=== PATIENT | male | born 1990 | race Caucasian/White ===

== ENCOUNTER 2020-10-02 23:40 | Emergency (ER) | payer OTHER ==
[2020-10-02 23:47] VITALS: TEMP 98.2
[2020-10-02] MEDS ORDERED: DEXAMETHASONE SOD PHOSPHATE 10 MG/ML 1 ML VIAL IV STA (23:59)
[2020-10-02] MEDS ORDERED: SODIUM CHLORIDE 0.9% 1,000 ML IV STA (23:59)
[2020-10-02] MEDS ORDERED: KETOROLAC 15 MG/ML 1 ML VIAL IVP STA (23:59)
[2020-10-02] MEDS ORDERED: ACETAMINOPHEN TAB 500 MG TAB PO STA (23:59)
--- NOTE | 2020-10-03 | ED ---
Recheck HPI - General Chief Complaint: Chest Pain Stated Complaint: COVID+ Source: patient, RN notes reviewed, old records reviewed Mode of arrival: ambulatory Limitations: no limitations - History of Present Illness MD Complaint: abnormal lab (COVID positive) -: days(s) Initial Visit For: other (none) Returns Today for: Called Because of Abnormal Lab/Test, persistent/worsening pain related to initial visit Symptoms Since Prior Visit: worsening pain, fever Context: ran out of medication Associated Symptoms: fever, chills, chest pain Treatments Prior to Arrival: other (none) - Related Data Allergies Allergy/AdvReac Type Severity Reaction Status Date / Time No Known Allergies Allergy Verified 10/02/20 23:46 Review of Systems ROS Statement: Those systems with pertinent positive or pertinent negative responses have been documented in the HPI. ROS Other: All systems not noted in ROS Statement are negative. Past Medical History Past Medical History: Hypertension History of Any Multi-Drug Resistant Organisms: None Reported Past Surgical History: No Surgical Hx Reported Past Psychological History: No Psychological Hx Reported Smoking Status: Current every day smoker Past Alcohol Use History: Rare Past Drug Use History: Marijuana General Exam Limitations: no limitations General appearance: alert, in no apparent distress Head exam: Present: atraumatic, normocephalic, normal inspection Eye exam: Present: normal appearance, PERRL, EOMI. Absent: scleral icterus, conjunctival injection, periorbital swelling ENT exam: Present: normal exam, mucous membranes moist Neck exam: Present: normal inspection. Absent: tenderness, meningismus, lymphadenopathy Respiratory exam: Present: normal lung sounds bilaterally. Absent: respiratory distress, wheezes, rales, rhonchi, stridor Cardiovascular Exam: Present: regular rate, normal rhythm, normal heart sounds. Absent: systolic murmur, diastolic murmur, rubs, gallop, clicks GI/Abdominal exam: Present: soft, normal bowel sounds. Absent: distended, tenderness, guarding, rebound, rigid Extremities exam: Present: normal inspection, full ROM, normal capillary refill. Absent: tenderness, pedal edema, joint swelling, calf tenderness Back exam: Present: normal inspection Neurological exam: Present: alert, oriented X3, CN II-XII intact Psychiatric exam: Present: normal affect, normal mood Skin exam: Present: warm, dry, intact, normal color. Absent: rash Course Vital Signs 10/02/20 10/03/2010/03/21 23:42 00:25 01:44 Temperature 98.2 F 98.2 F Pulse Rate 90 75 Pulse Rate [ 88 [employer] ] Respiratory 18 22 20 Rate Blood Pressure 162/91 136/93 O2 Sat by Pulse 97 97 Oximetry 10/03/20 10/03/20 02:00 03:10 Temperature 98.2 F Pulse Rate 76 70 Pulse Rate [ [employer] ] Respiratory 18 20 Rate Blood Pressure 124/76 129/78 O2 Sat by Pulse 97 99 Oximetry - Reevaluation(s) Reevaluation #1: Medical record is reviewed Patient symptoms are significantly improved here in the emergency department Patient family informed of results, questions answered Medical Decision Making - Lab Data Result diagrams: 10/03/20 00:05 10/03/20 00:05 Lab Results 10/03/20 10/03/20 10/03/20 Range/Units 00:05 00:05 00:05 WBC 5.7 (3.8-10.6) k/uL RBC 5.67 (4.30-5.90) m/uL Hgb 16.4 (13.0-17.5) gm/dL Hct 48.0 (39.0-53.0) % MCV 84.5 (80.0-100.0) fL MCH 28.8 (25.0-35.0) pg MCHC 34.1 (31.0-37.0) g/dL RDW 13.2 (11.5-15.5) % Plt Count 147 L (150-450) k/uL MPV 10.3 Neutrophils % 53 % Lymphocytes % 34 % Monocytes % 10 % Eosinophils % 1 % Basophils % 1 % Neutrophils # 3.0 (1.3-7.7) k/uL Lymphocytes # 1.9 (1.0-4.8) k/uL Monocytes # 0.5 (0-1.0) k/uL Eosinophils # 0.0 (0-0.7) k/uL Basophils # 0.0 (0-0.2) k/uL Sodium 137 (137-145) mmol/L Potassium 3.8 (3.5-5.1) mmol/L Chloride 103 (98-107) mmol/L Carbon Dioxide 26 (22-30) mmol/L Anion Gap 8 mmol/L BUN 10 (9-20) mg/dL Creatinine 0.75 (0.66-1.25) mg/dL Est GFR (CKD-EPI)AfAm >90 (>60 ml/min/1.73 sqM) Est GFR (CKD-EPI)NonAf >90 (>60 ml/min/1.73 sqM) Glucose 110 H (74-99) mg/dL Plasma Lactic Acid Cristi 1.0 (0.7-2.0) mmol/L Calcium 9.3 (8.4-10.2) mg/dL Magnesium 2.1 (1.6-2.3) mg/dL Total Bilirubin 0.8 (0.2-1.3) mg/dL AST 35 (17-59) U/L ALT 34 (4-49) U/L Alkaline Phosphatase 63 (38-126) U/L Lactate Dehydrogenase 496 (313-618) U/L C-Reactive Protein 0.5 (<1.0) mg/dL Total Protein 8.0 (6.3-8.2) g/dL Albumin 4.9 (3.5-5.0) g/dL - EKG Data -: EKG Interpreted by Me (EKG is sinus rhythm 78 SC 136 QRS 104 QTC 446) Disposition Clinical Impression: Coronavirus infection Disposition: HOME SELF-CARE Condition: Good Instructions (If sedation given, give patient instructions): Coronavirus Disease 2019 (COVID-19) Is patient prescribed a controlled substance at d/c from ED?: No Referrals: Joe Santana MD [Primary Care Provider] - 1-2 days
[2020-10-03 00:14] LABS: Basophils % (A) 1 %; Eosinophils % (A) 1 %; HGB 16.4 gm/dL (13.0-17.5); Lymphocytes # (A) 1.9 k/uL (1.0-4.8); Lymphocytes % (A) 34 %; MCH 28.8 pg (25.0-35.0); MCHC 34.1 g/dL (31.0-37.0); MCV 84.5 fL (80.0-100.0); Mean Platelet Volume 10.3; Monocytes # (A) 0.5 k/uL (0-1.0); Monocytes % (A) 10 %; Neutrophils % (A) 53 %; Platelet Count 147 k/uL (150-450); RBC 5.67 m/uL (4.30-5.90); RDW 13.2 % (11.5-15.5); WBC 5.7 k/uL (3.8-10.6)
[2020-10-03 00:39] LABS: ALT 34 U/L (4-49); AST 35 U/L (17-59); African American GFR (CKD) >90 (>60 ml/min/1.73 sqM); Albumin 4.9 g/dL (3.5-5.0); Alkaline Phosphatase 63 U/L (38-126); Anion Gap 8 mmol/L; Blood Urea Nitrogen 10 mg/dL (9-20); C Reactive Protein 0.5 mg/dL (<1.0); Calcium 9.3 mg/dL (8.4-10.2); Carbon Dioxide 26 mmol/L (22-30); Chloride 103 mmol/L (98-107); Glucose 110 mg/dL (74-99); LDH 496 U/L (313-618); Magnesium 2.1 mg/dL (1.6-2.3); Non-African American GFR(CKD) >90 (>60 ml/min/1.73 sqM); Potassium 3.8 mmol/L (3.5-5.1); Sodium 137 mmol/L (137-145); Total Bilirubin 0.8 mg/dL (0.2-1.3)
--- NOTE | 2020-10-03 00:44 | XR ---
EXAM: XR Chest, 1 View CLINICAL HISTORY: ITS.REASON XR Reason: Suspected COVID-19 pneumonia TECHNIQUE: Frontal view of the chest. COMPARISON: No relevant prior studies available. FINDINGS: Lungs: Peripheral infiltrates in the right lower lung. Left lung appears clear. Pleural space: Unremarkable. No pleural effusion or pneumothorax. Heart: Unremarkable. No cardiomegaly or pulmonary vascular congestion. Mediastinum: Unremarkable. Bones/joints: No acute fracture. No dislocation. IMPRESSION: Peripheral infiltrates in the right lower lung, concerning for pneumonia, possibly viral pneumonia.
[2020-10-03] MEDS ORDERED: BAMLANIVIMAB (EUA) 700 MG, ETESEVIMAB (EUA) 1,400 MG in SODIUM CHLORIDE 0.9% 50 ML IVPB ONE (01:30)
[2020-10-03] MEDS ORDERED: SODIUM CHLORIDE 0.9% 50 ML IVPB ONE (01:30)
[2020-10-03 03:10] VITALS: BP 129/78; PULSE 70; RESP 20
== END 2020-10-03 03:10 | disposition home or self-care (01) ==
LOC: EC 23:40
DX: U07.1 COVID-19 (principal); I10 Essential (primary) hypertension; F17.200 Nicotine dependence, unspecified, uncomplicated; F12.90 Cannabis use, unspecified, uncomplicated
CPT/HCPCS: 36415; 93005; 80053; 83605; 83615; 83735; 85025; 86140; 71045; 99284; 96374; 96375; 96361; J1100; J1885; Q0245

== ENCOUNTER 2022-11-03 10:29 | Observation (INO) | payer OTHER ==
[2022-11-03] MEDS ORDERED: DILTIAZEM DRIP BOLUS FROM BAG 1 MG SOLN IV ONE (10:59)
--- NOTE | 2022-11-03 10:59 | ED ---
Arrhythmia/Palpitations HPI - General Chief Complaint: Arrhythmia/Palpitations Stated Complaint: heart fluttering Time Seen by Provider: 11/03/22 10:43 Source: patient Mode of arrival: ambulatory Limitations: no limitations - History of Present Illness Initial Comments: 32-year-old male who presents to the emergency room reporting palpitations. States that they started this morning. He feels like his heart is variable between feeling really slowed and fast. Admits that this did happen to him once before however is unsure of his diagnosis. He takes Toprol but did not take it this morning. Denies any additional missed doses. He is not on a blood thinner. He denies chest pain. Recently started an injection once weekly for his diabetes. He denies recent illnesses. No lower extremity swelling. No other alleviating, precipitating or modifying factors - Related Data Home Medications Medication Instructions Recorded Confirmed Cyclobenzaprine [Flexeril] 10 mg PO BID 11/03/22 11/03/22 Ergocalciferol [Vitamin D2 (1250 1,250 mcg PO Q28D 11/03/22 11/03/22 Mcg = 81771 Iu)] HYDROcodone/APAP 5-325MG [[place] 1 tab PO BID PRN 11/03/22 11/03/22 5-325] Ibuprofen [Motrin] 800 mg PO BID PRN 11/03/22 11/03/22 Metoprolol Succinate [Toprol XL] 50 mg PO DAILY@1200 11/03/22 11/03/22 Semaglutide [Wegovy] 0.25 mg SQ TH 11/03/22 11/03/22 Allergies Allergy/AdvReac Type Severity Reaction Status Date / Time No Known Allergies Allergy Verified 11/03/22 13:02 Review of Systems ROS Statement: Those systems with pertinent positive or pertinent negative responses have been documented in the HPI. ROS Other: All systems not noted in ROS Statement are negative. Past Medical History Past Medical History: Hypertension History of Any Multi-Drug Resistant Organisms: None Reported Past Surgical History: No Surgical Hx Reported Past Psychological History: No Psychological Hx Reported Smoking Status: Current every day smoker Past Alcohol Use History: Rare Past Drug Use History: Marijuana General Exam Limitations: no limitations Course Vital Signs 11/03/22 11/03/22 11/03/22 10:37 10:43 11:01 Temperature 97.4 F L Pulse Rate 84 142 H Pulse Rate [ 155 H Relief Charge Nurse ] Respiratory 18 12 Rate Blood Pressure 135/96 123/91 O2 Sat by Pulse 98 98 Oximetry 11/03/22 11/03/22 11/03/22 11:10 11:20 11:30 Temperature Pulse Rate 104 H 104 H 93 Pulse Rate [ Relief Charge Nurse ] Respiratory 9 L 8 L 12 Rate Blood Pressure O2 Sat by Pulse 97 97 98 Oximetry 11/03/22 11/03/22 11/03/22 12:00 12:30 13:00 Temperature Pulse Rate 92 90 86 Pulse Rate [ Relief Charge Nurse ] Respiratory 16 16 17 Rate Blood Pressure 143/78 135/82 123/70 O2 Sat by Pulse 96 97 96 Oximetry 11/03/22 11/03/22 14:00 15:00 Temperature Pulse Rate 90 87 Pulse Rate [ Relief Charge Nurse ] Respiratory 17 18 Rate Blood Pressure 121/91 133/77 O2 Sat by Pulse 96 96 Oximetry EKG Findings - EKG Comments: EKG Findings:: EKG is interpreted by myself and completed at 1047 which demonstrates A. fib with a rate of 150. QRS 102. QTC of 373. No acute ST segment elevations or depressions. Repeat EKG is performed at 1246 and is interpreted by myself which demonstrates sinus rhythm with a rate of 84. AL interval 149. QRS 97. QTC 399. No acute ST segment elevations or depressions Medical Decision Making - Medical Decision Making Was pt. sent in by a medical professional or institution (Dr. PA, BARIATRIC NURSE, urgent care, hospital, or halfway...) When possible be specific @ -[No] Did you speak to anyone other than the patient for history (EMS, parent, family, police, friend...)? What history was obtained from this source @ -[No] Did you review nursing and triage notes (agree or disagree)? Why? @ -[I reviewed and agree with nursing and triage notes] Were old charts reviewed (outside hosp., previous admission, EMS record, old EKG, old radiological studies, urgent care reports/EKG's, halfway records)? Report findings @ -[No old charts were reviewed] Differential Diagnosis (chest pain, altered mental status, abdominal pain women, abdominal pain men, vaginal bleeding, weakness, fever, dyspnea, syncope, headache, dizziness, GI bleed, back pain, seizure, CVA, palpatations, mental health, musculoskeletal)? @ -[not applicable] EKG interpreted by me (3pts min.). @ -[As above] X-rays interpreted by me (1pt min.). @ -[None done] CT interpreted by me (1pt min.). @ -[None done] U/S interpreted by me (1pt. min.). @ -[None done] What testing was considered but not performed or refused? (CT, X-rays, U/S, labs)? Why? @ -[None] What meds were considered but not given or refused? Why? @ -[None] Did you discuss the management of the patient with other professionals (professionals i.e. Dr., PA, BARIATRIC NURSE, lab, RT, psych nurse, psychosocial rehabilitation counselor, research engineer marine equipment, teacher, duty officer, immigration case worker)? Give summary @ -[No] Was smoking cessation discussed for >3mins.? @ -[No] Was critical care preformed (if so, how long)? @ -[No] Were there social determinants of health that impacted care today? How? (Homelessness, low income, unemployed, alcoholism, drug addiction, transportation, low edu. Level, literacy, decrease access to med. care, longterm, rehab)? @ -[No] Was there de-escalation of care discussed even if they declined (Discuss DNR or withdrawal of care, Hospice)? DNR status @ -[No] What co-morbidities impacted this encounter? (DM, HTN, Smoking, COPD, CAD, Cancer, CVA, ARF, Chemo, Hep., AIDS, mental health diagnosis, sleep apnea, morbid obesity)? @ -[None] Was patient admitted / discharged? Hospital course, mention meds given and route, prescriptions, significant lab abnormalities, going to OR and other pertinent info. @ -Upon arrival patient is placed into room 4. He is found to be in A. fib with RVR. IV is established and laboratory studies are conducted. Chest x-rays performed. Patient was started on a Cardizem drip as well as a heparin drip. Patient does convert to normal sinus rhythm. Did discuss this with the patient the need for admission. Spoke with Dr. Santana who agreed to admit the patient with cardiology consult Undiagnosed new problem with uncertain prognosis? @ -[No] Drug Therapy requiring intensive monitoring for toxicity (Heparin, Nitro, Insulin, Cardizem)? @ -[No] Were any procedures done? @ -[No] Diagnosis/symptom? @ -[default] Acute, or Chronic, or Acute on Chronic? @ -[default] Uncomplicated (without systemic symptoms) or Complicated (systemic symptoms)? @ -[default] Side effects of treatment? @ -[No] Exacerbation, Progression, or Severe Exacerbation? @ -[No] Poses a threat to life or bodily function? How? (Chest pain, [place], [place], pneumonia, PE, COPD, DKA, ARF, appy, cholecystitis, CVA, Diverticulitis, Homicidal, Suicidal, threat to staff... and all critical care pts) @ -[No] - Lab Data Result diagrams: 11/03/22 11:00 11/03/22 11:00 Lab Results 11/03/22 11/03/22 11/03/22 Range/Units 11:00 11:00 11:00 WBC 9.7 (3.8-10.6) k/uL RBC 5.65 (4.30-5.90) m/uL Hgb 16.4 (13.0-17.5) gm/dL Hct 47.7 (39.0-53.0) % MCV 84.5 (80.0-100.0) fL MCH 29.1 (25.0-35.0) pg MCHC 34.4 (31.0-37.0) g/dL RDW 13.3 (11.5-15.5) % Plt Count 191 (150-450) k/uL MPV 10.0 Neutrophils % 65 % Lymphocytes % 22 % Monocytes % 9 % Eosinophils % 2 % Basophils % 1 % Neutrophils # 6.3 (1.3-7.7) k/uL Lymphocytes # 2.1 (1.0-4.8) k/uL Monocytes # 0.9 (0-1.0) k/uL Eosinophils # 0.2 (0-0.7) k/uL Basophils # 0.1 (0-0.2) k/uL PT 10.2 (9.0-12.0) sec INR 1.0 (<1.2) APTT 25.6 (22.0-30.0) sec Sodium 139 (137-145) mmol/L Potassium 3.7 (3.5-5.1) mmol/L Chloride 104 (98-107) mmol/L Carbon Dioxide 24 (22-30) mmol/L Anion Gap 11 mmol/L BUN 15 (9-20) mg/dL Creatinine 0.87 (0.66-1.25) mg/dL Est GFR (CKD-EPI)AfAm >90 (>60 ml/min/1.73 sqM) Est GFR (CKD-EPI)NonAf >90 (>60 ml/min/1.73 sqM) Glucose 148 H (74-99) mg/dL Calcium 9.0 (8.4-10.2) mg/dL Magnesium 2.1 (1.6-2.3) mg/dL Total Bilirubin 0.5 (0.2-1.3) mg/dL AST 39 (17-59) U/L ALT 51 H (4-49) U/L Alkaline Phosphatase 65 (38-126) U/L Troponin I (0.000-0.034) ng/mL Total Protein 7.5 (6.3-8.2) g/dL Albumin 4.6 (3.5-5.0) g/dL TSH 2.220 (0.465-4.680) mIU/L 11/03/22 Range/Units 11:00 WBC (3.8-10.6) k/uL RBC (4.30-5.90) m/uL Hgb (13.0-17.5) gm/dL Hct (39.0-53.0) % MCV (80.0-100.0) fL MCH (25.0-35.0) pg MCHC (31.0-37.0) g/dL RDW (11.5-15.5) % Plt Count (150-450) k/uL MPV Neutrophils % % Lymphocytes % % Monocytes % % Eosinophils % % Basophils % % Neutrophils # (1.3-7.7) k/uL Lymphocytes # (1.0-4.8) k/uL Monocytes # (0-1.0) k/uL Eosinophils # (0-0.7) k/uL Basophils # (0-0.2) k/uL PT (9.0-12.0) sec INR (<1.2) APTT (22.0-30.0) sec Sodium (137-145) mmol/L Potassium (3.5-5.1) mmol/L Chloride (98-107) mmol/L Carbon Dioxide (22-30) mmol/L Anion Gap mmol/L BUN (9-20) mg/dL Creatinine (0.66-1.25) mg/dL Est GFR (CKD-EPI)AfAm (>60 ml/min/1.73 sqM) Est GFR (CKD-EPI)NonAf (>60 ml/min/1.73 sqM) Glucose (74-99) mg/dL Calcium (8.4-10.2) mg/dL Magnesium (1.6-2.3) mg/dL Total Bilirubin (0.2-1.3) mg/dL AST (17-59) U/L ALT (4-49) U/L Alkaline Phosphatase (38-126) U/L Troponin I <0.012 (0.000-0.034) ng/mL Total Protein (6.3-8.2) g/dL Albumin (3.5-5.0) g/dL TSH (0.465-4.680) mIU/L Disposition Clinical Impression: Atrial fibrillation with RVR, Palpitations Disposition: [facility]MITT[facility] Condition: Stable Is patient prescribed a controlled substance at d/c from ED?: No Time of Disposition: 13:39 Decision to Admit Reason: Admit from EC Decision Date: 11/03/22 Decision Time: 13:39
[2022-11-03] MEDS: DILTIAZEM 125 MG in SODIUM CHLORIDE 0.9% 100 ML IV SCH (11:13)
[2022-11-03 11:25] LABS: Basophils # (A) 0.1 k/uL (0-0.2); Basophils % (A) 1 %; Eosinophils # (A) 0.2 k/uL (0-0.7); Eosinophils % (A) 2 %; HCT 47.7 % (39.0-53.0); HGB 16.4 gm/dL (13.0-17.5); Lymphocytes # (A) 2.1 k/uL (1.0-4.8); Lymphocytes % (A) 22 %; MCH 29.1 pg (25.0-35.0); MCHC 34.4 g/dL (31.0-37.0); MCV 84.5 fL (80.0-100.0); Monocytes # (A) 0.9 k/uL (0-1.0); Monocytes % (A) 9 %; Neutrophils # (A) 6.3 k/uL (1.3-7.7); Neutrophils % (A) 65 %; Platelet Count 191 k/uL (150-450); RBC 5.65 m/uL (4.30-5.90); RDW 13.3 % (11.5-15.5); WBC 9.7 k/uL (3.8-10.6)
[2022-11-03 11:35] LABS: ALT 51 U/L (4-49); AST 39 U/L (17-59); African American GFR (CKD) >90 (>60 ml/min/1.73 sqM); Albumin 4.6 g/dL (3.5-5.0); Alkaline Phosphatase 65 U/L (38-126); Anion Gap 11 mmol/L; Blood Urea Nitrogen 15 mg/dL (9-20); Carbon Dioxide 24 mmol/L (22-30); Chloride 104 mmol/L (98-107); Glucose 148 mg/dL (74-99); Magnesium 2.1 mg/dL (1.6-2.3); Non-African American GFR(CKD) >90 (>60 ml/min/1.73 sqM); Potassium 3.7 mmol/L (3.5-5.1); Sodium 139 mmol/L (137-145); Total Bilirubin 0.5 mg/dL (0.2-1.3); Total Protein 7.5 g/dL (6.3-8.2)
--- NOTE | 2022-11-03 11:36 | XR ---
EXAMINATION TYPE: XR chest 2V DATE OF EXAM: 11/03/2022 COMPARISON: 10/03/2020 HISTORY: Chest pain TECHNIQUE: Frontal and lateral views of the chest are obtained. FINDINGS: There is no focal air space opacity. No evidence for pneumothorax. No pleural effusion. The cardiac silhouette size is within normal limits. The osseous structures are grossly intact. IMPRESSION: 1. No acute cardiopulmonary process.
[2022-11-03 11:45] LABS: Partial Thromboplastin Time 25.6 sec (22.0-30.0); Prothrombin Time 10.2 sec (9.0-12.0)
[2022-11-03] MEDS ORDERED: NALOXONE 0.4 MG/ML 1 ML VIAL IV PRN (13:39)
[2022-11-03] MEDS ORDERED: HEPARIN SODIUM 1,000 UN/ML (10ML VL) IV PRN (13:40)
[2022-11-03] MEDS ORDERED: HEPARIN SODIUM 1,000 UN/ML (10ML VL) IV ONE (13:40)
[2022-11-03] MEDS: HEPARIN SOD,PORK IN 0.45% NACL 25,000 UNIT in 0.45% NACL 1 250ML.BAG IV SCH (15:08)
[2022-11-03] MEDS ORDERED: IBUPROFEN 800 MG TAB PO PRN (18:05)
[2022-11-03] MEDS ORDERED: HYDROcodone/APAP 5-325MG 1 EACH TAB PO PRN (18:05)
[2022-11-03 20:38] LABS: Partial Thromboplastin Time 29.5 sec (22.0-30.0)
[2022-11-03] MEDS: CYCLOBENZAPRINE 10 MG TAB PO SCH (21:07)
[2022-11-04] MEDS: CYCLOBENZAPRINE 10 MG TAB PO SCH (08:10)
--- NOTE | 2022-11-04 09:41 | HP ---
HISTORY AND PHYSICAL CHIEF COMPLAINT: Palpitations. HISTORY OF PRESENT ILLNESS: This is a 32-year-old white male woke up and noticed that his heart was racing. He felt a little bit short of breath. He presented to the emergency room where he was in atrial fibrillation. He was converted in the ER. He denied any chest pain, fever, chills, nausea, vomiting, abdominal pain, etc. PAST MEDICAL HISTORY: Unremarkable. FAMILY HISTORY: Unremarkable. PERSONAL AND SOCIAL HISTORY: Unremarkable, otherwise. He has had arrhythmia in the past and that is why he is on metoprolol. He is also on Motrin, Wegovy, and Flexeril. He is overweight. He is not allergic to any medication. PHYSICAL EXAMINATION: VITAL SIGNS: Blood pressure 135/96 with a pulse of 155 and irregularly irregular. Respirations were 28 and he was afebrile. GENERAL: Appeared to be overweight, in no acute distress. SKIN: Color is normal. Skin is warm, dry. LYMPH NODES: Not enlarged. HEAD, EARS, EYES, NOSE, MOUTH AND THROAT: Normal. NECK: Neck veins are not distended. Thyroid not enlarged. Chest: Clear. CARDIAC: Normal except for the rapid heart rate. There are no murmurs or extra sounds. ABDOMEN: Protuberant, soft, nontender. EXTREMITIES: Normal. NEUROLOGICAL: Intact. IMPRESSION: 1. Atrial fibrillation with rapid ventricular response. 2. Obesity. 3. History of previous supraventricular tachycardia. PLAN: 1. Bed rest. 2. IV fluids. 3. Cardiology consult. 4. Echocardiogram. 5. ?anticoagulation. MMODL / IJN: [id number] /
[2022-11-04 10:35] LABS: Basophils # (A) 0.1 k/uL (0-0.2); Basophils % (A) 1 %; Eosinophils # (A) 0.1 k/uL (0-0.7); Eosinophils % (A) 2 %; HCT 45.6 % (39.0-53.0); HGB 15.2 gm/dL (13.0-17.5); Lymphocytes # (A) 1.9 k/uL (1.0-4.8); Lymphocytes % (A) 27 %; MCH 29.2 pg (25.0-35.0); MCHC 33.4 g/dL (31.0-37.0); MCV 87.5 fL (80.0-100.0); Mean Platelet Volume 9.7; Monocytes # (A) 0.6 k/uL (0-1.0); Monocytes % (A) 9 %; Neutrophils # (A) 4.2 k/uL (1.3-7.7); Neutrophils % (A) 60 %; Platelet Count 178 k/uL (150-450); RBC 5.21 m/uL (4.30-5.90); RDW 12.9 % (11.5-15.5)
[2022-11-04 10:45] LABS: Partial Thromboplastin Time 28.4 sec (22.0-30.0); Prothrombin Time 10.8 sec (9.0-12.0)
[2022-11-04 10:46] LABS: African American GFR (CKD) >90 (>60 ml/min/1.73 sqM); Anion Gap 9 mmol/L; Blood Urea Nitrogen 12 mg/dL (9-20); Calcium 8.8 mg/dL (8.4-10.2); Carbon Dioxide 27 mmol/L (22-30); Chloride 103 mmol/L (98-107); Glucose 107 mg/dL (74-99); Non-African American GFR(CKD) >90 (>60 ml/min/1.73 sqM); Potassium 4.1 mmol/L (3.5-5.1); Sodium 139 mmol/L (137-145)
[2022-11-04] MEDS ORDERED: METOPROLOL SUCCINATE (ER) 50 MG TAB.ER.24H PO SCH (12:00)
--- NOTE | 2022-11-04 12:11 | P.CRDCN ---
History of Present Illness Consult date: 11/04/22 Consult reason: atrial fibrillation (w rvr) History of present illness: History of present illness: This is a 32-year-old male with past medical history of hypertension and paroxysmal atrial fibrillation. Patient was seen in the office by Dr. VC Sorenson 09/2014. According to her chads 2 recommendations were for anticoagulant but patient remained in a sinus rhythm and so he was left off anticoagulation. He states he woke up yesterday feeling funny in his chest with his heart beating fast and then slow and then a soft fluttering feeling in his back. He denies having any lightheadedness, dizziness or syncopal episodes. He denies any hist ory of diabetes or hyperlipidemia. Patient was started on Cardizem drip and his converted to sinus rhythm. Patient is also on heparin drip. EKG atrial fibrillation with ventricular rate of 150 Chest x-ray: No acute cardiopulmonary process CBC unremarkable. INR 1. D-dimer 0.28. Electrolytes and renal function normal. Troponin negative 1. TSH 2.22. Home cardiac medications: Toprol-XL 50 mg daily at noon Stress echocardiogram performed in the office in 2013 revealed no stress-induced ischemia, normal left ventricle systolic function. Review Of Systems: At the time of my evaluation: Constitutional: No fever, no chills. No weakness, fatigue or lethargy. EENT: No headache. No dizziness. Lungs: No shortness of breath, cough, no sputum production. No wheezing. Cardiovascular: No chest pain, no lower extremity edema. No palpitations. No paroxysmal nocturnal dyspnea. No orthopnea. No lightheadedness or dizziness. No syncopal episodes. Abdominal: No abdominal pain. No nausea, vomiting. No diarrhea. No constipation. No bloody or tarry stools. Genitourinary: No dysuria.. No urinary retention. Musculoskeletal: No myalgias. No muscle weakness, no frequent falls. No back pain. No neck pain. Integumentary: No wounds. No rash. No unusual bruising. Neurologic: No aphasia. No facial droop. No change in mentation. No head injury. No headache. Physical examination: Gen: This is a morbidly obese 32-year-old male. He is resting but appears to be comfortable and in no acute distress. VS: reviewed HEENT: Head is atraumatic, normocephalic. Pupils equal, round. Sclerae is anicteric. NECK: Supple. No JVD. . LUNGS: Clear to auscultation. No wheezes or rhonchi. No intercostal retractions. HEART: Regular rate and rhythm. No murmur. ABDOMEN: Soft No tenderness. EXTREMITIES: No pedal edema. No calf tenderness. NEUROLOGICAL: Patient is awake, alert and oriented x3. Assessment: Paroxysmal atrial fibrillation presented with RVR, converted to sinus rhythm Hypertension Plan: Discontinue heparin drip Start patient back on home Toprol-XL CHADS-VASC score 1 - no anticoagulant 2-D echocardiogram and Doppler study has been obtained, will review results Further recommendations to follow based upon clinical course Thank you kindly for this consultation. Nurse practitioner note has been reviewed, I agree with documented findings and plan of care. Patient was seen and examined. Past Medical History Past Medical History: Hypertension History of Any Multi-Drug Resistant Organisms: None Reported Past Surgical History: No Surgical Hx Reported Past Anesthesia/Blood Transfusion Reactions: No Reported Reaction Past Psychological History: No Psychological Hx Reported Smoking Status: Current every day smoker Past Alcohol Use History: Rare Past Drug Use History: Marijuana Medications and Allergies Home Medications Medication Instructions Recorded Confirmed Type Cyclobenzaprine [Flexeril] 10 mg PO BID 11/03/22 11/03/22 History Ergocalciferol [Vitamin D2 (1250 1,250 mcg PO Q28D 11/03/22 11/03/22 History Mcg = 78284 Iu)] HYDROcodone/APAP 5-325MG [[place] 1 tab PO BID PRN 11/03/22 11/03/22 History 5-325] Ibuprofen [Motrin] 800 mg PO BID PRN 11/03/22 11/03/22 History Metoprolol Succinate [Toprol XL] 50 mg PO DAILY@1200 11/03/22 11/03/22 History Semaglutide [Wegovy] 0.25 mg SQ TH 11/03/22 11/03/22 History Allergies Allergy/AdvReac Type Severity Reaction Status Date / Time No Known Allergies Allergy Verified 11/03/22 13:02 Physical Exam Vitals: Vital Signs Temp Pulse Pulse Resp BP BP Pulse Ox 11/04/22 04:00 97.8 F 89 16 129/63 95 11/04/22 01:14 16 11/04/22 00:00 98.0 F 82 16 142/69 96 11/03/22 20:00 97.9 F 84 16 152/76 94 L 11/03/22 19:57 84 16 141/88 97 11/03/22 17:00 87 12 138/76 98 11/03/22 16:12 97 16 138/76 97 11/03/22 16:00 149/88 11/03/22 15:00 87 18 133/77 96 11/03/22 14:00 90 17 121/91 96 11/03/22 13:00 86 17 123/70 96 11/03/22 12:30 90 16 135/82 97 11/03/22 12:00 92 16 143/78 96 11/03/22 11:30 93 12 98 11/03/22 11:20 104 H 8 L 97 11/03/22 11:10 104 H 9 L 97 11/03/22 11:01 142 H 12 123/91 98 11/03/22 10:43 155 H 11/03/22 10:37 97.4 F L 84 18 135/96 98 Intake and Output 11/03/22 11/04/22 11/04/22 22:59 06:59 14:59 Intake Total 240 Balance 240 Intake: Oral 240 Other: Voiding Method Toilet Toilet Urinal Urinal # Voids 0 Weight 145.15 kg Results 11/04/22 10:21 11/04/22 10:21 Cardiac Enzymes 11/03/22 11/03/22 Range/Units 11:00 11:00 AST 39 (17-59) U/L Troponin I <0.012 (0.000-0.034) ng/mL Coagulation 11/03/22 11/03/22 Range/Units 11:00 19:25 PT 10.2 (9.0-12.0) sec APTT 25.6 29.5 (22.0-30.0) sec CBC 11/03/22 Range/Units 11:00 WBC 9.7 (3.8-10.6) k/uL RBC 5.65 (4.30-5.90) m/uL Hgb 16.4 (13.0-17.5) gm/dL Hct 47.7 (39.0-53.0) % Plt Count 191 (150-450) k/uL Comprehensive Metabolic Panel 11/03/22 Range/Units 11:00 Sodium 139 (137-145) mmol/L Potassium 3.7 (3.5-5.1) mmol/L Chloride 104 (98-107) mmol/L Carbon Dioxide 24 (22-30) mmol/L BUN 15 (9-20) mg/dL Creatinine 0.87 (0.66-1.25) mg/dL Glucose 148 H (74-99) mg/dL Calcium 9.0 (8.4-10.2) mg/dL AST 39 (17-59) U/L ALT 51 H (4-49) U/L Alkaline Phosphatase 65 (38-126) U/L Total Protein 7.5 (6.3-8.2) g/dL Albumin 4.6 (3.5-5.0) g/dL Current Medications Generic Name Dose Route Start Last Admin Trade Name Freq PRN Reason Stop Dose Admin Hydrocodone Bitart/Acetaminophen 1 each 11/03/22 18:05 Hydrocodone/Apap 5-325mg 1 Each Tab PO BID PRN Pain Cyclobenzaprine HCl 10 mg 11/03/22 21:00 11/03/22 21:07 Cyclobenzaprine 10 Mg Tab PO 10 mg BID ANTONIO Administration Heparin Sodium (Porcine) 0 unit 11/03/22 13:40 Heparin Sodium 1,000 Un/Ml (10ml Vl) IV PER PROTOCOL PRN Low PTT Protocol Diltiazem HCl 125 mg/ Sodium 125 mls @ 5 mls/hr 11/03/22 11:00 11/03/22 11:13 Chloride IV 5 mg/hr .Q24H ANTONIO 5 mls/hr Administration 5 MG/HR Heparin Sodium/Sodium Chloride 250 mls @ 10.001 mls/hr 11/03/22 13:45 11/03/22 15:08 25,000 unit/ Sodium Chloride IV 6.89 units/kg/hr .Q24H ANTONIO 10.001 mls/hr Administration Protocol 6.89 UNITS/KG/HR Ibuprofen 800 mg 11/03/22 18:05 Ibuprofen 800 Mg Tab PO BID PRN Pain Metoprolol Succinate 50 mg 11/04/22 12:00 Metoprolol Succinate (Er) 50 Mg Tab.Er.24h PO DAILY@1200 ANTONIO Naloxone HCl 0.2 mg 11/03/22 13:39 Naloxone 0.4 Mg/Ml 1 Ml Vial IV Q2M PRN Opioid Reversal Intake and Output 11/03/22 11/04/22 11/04/22 22:59 06:59 14:59 Intake Total 240 Balance 240 Intake: Oral 240 Other: Voiding Method Toilet Toilet Urinal Urinal # Voids 0 Weight 145.15 kg 11/03/22 11:00 11/03/22 11:00
[2022-11-04] MEDS: DILTIAZEM 125 MG in SODIUM CHLORIDE 0.9% 100 ML IV SCH (13:21)
[2022-11-04] MEDS: HEPARIN SOD,PORK IN 0.45% NACL 25,000 UNIT in 0.45% NACL 1 250ML.BAG IV SCH (15:22)
[2022-11-04 16:26] VITALS: BP 150/79; PULSE 90; RESP 16; TEMP 97.4
--- NOTE | 2022-11-04 18:56 | CA ---
Transthoracic Echo Report Name: Luther Bojorquez Age: 32 Gender: M : 1990 Exam Date: 11/04/2022 07:41 Exam Location: [facility] Ht (in): 67 Wt (lb): 320 Ordering Physician: Joe Santana MD Attending/Referring Phys: Esther BROTHERS [employer] Timothy Doss Procedure CPT: Indications: AF Cardiac Hx: Technical Quality: Fair Contrast 1: Total Dose (mL): Contrast 2: Total Dose (mL): MEASUREMENTS (Male / Female) Normal Values 2D ECHO LV Diastolic Diameter PLAX 4.1 cm 4.2 - 5.9 / 3.9 - 5.3 cm LV Systolic Diameter PLAX 2.6 cm IVS Diastolic Thickness 1.4 cm 0.6 - 1.0 / 0.6 - 0.9 cm LVPW Diastolic Thickness 1.4 cm 0.6 - 1.0 / 0.6 - 0.9 cm LV Relative Wall Thickness 0.7 RV Internal Dim ED PLAX 4.4 cm LVOT Diameter 2.2 cm Aortic Root Diameter 3.7 cm LA Systolic Diameter LX 3.0 cm 3.0 - 4.0 / 2.7 - 3.8 cm LV Diastolic Volume MOD BP 76.9 cm??? 67 - 155 / 56 - 104 cm??? LV Systolic Volume MOD BP 32.2 cm??? 22 - 58 / 19 - 49 cm??? LV Ejection Fraction MOD BP 58.2 % >= 55 % LV Diastolic Volume MOD 4C 88.7 cm??? LV Systolic Volume MOD 4C 36.5 cm??? LV Ejection Fraction MOD 4C 58.8 % LV Diastolic Length 4C 7.8 cm LV Systolic Length 4C 6.8 cm LV Diastolic Volume MOD 2C 62.9 cm??? LV Systolic Volume MOD 2C 27.6 cm??? LV Ejection Fraction MOD 2C 56.2 % LV Diastolic Length 2C 7.3 cm LV Systolic Length 2C 6.3 cm LA Volume 42.3 cm??? 18 - 58 / 22 - 52 cm??? Ascending Aorta Diameter 3.1 cm DOPPLER MV Peak Velocity 117.5 cm/s MV Peak Gradient 5.5 mmHg MV Mean Velocity 63.5 cm/s MV Mean Gradient 2.0 mmHg MV Velocity Time Integral 22.9 cm Mitral E Point Velocity 75.0 cm/s Mitral A Point Velocity 59.1 cm/s Mitral E to A Ratio 1.3 MV Deceleration Time 232.2 ms TR Peak Velocity 181.9 cm/s TR Peak Gradient 13.2 mmHg Right Ventricular Systolic Press 18.2 mmHg PV Peak Velocity 113.7 cm/s PV Peak Gradient 5.2 mmHg FINDINGS Left Ventricle Left ventricular ejection fraction is estimated at_55-60 %. Right Ventricle Upper limits of normal size. Right Atrium Normal right atrial size. Left Atrium Normal left atrial size. Mitral Valve Structurally normal mitral valve. Trace MR. Aortic Valve Normal AV. No aortic valve stenosis or regurgitation. Tricuspid Valve Structurally normal tricuspid valve. Trace TR. Pulmonic Valve Pulmonic valve not well visualized. No pulmonic regurgitation. Pericardium Normal pericardium. Aorta Aortic root and proximal ascending aorta not well visualized. CONCLUSIONS Normal LV systolic function Previewed by: Dr. Gui Zapien MD (Electronically Signed) Final Date: 04 Nov 2022 18:55
--- NOTE | 2022-11-05 01:32 | DS ---
DISCHARGE SUMMARY CHIEF COMPLAINT: Rapid heart beating. HISTORY OF PRESENT ILLNESS AND PHYSICAL EXAMINATION: Details of this man's history and physical can be found in the initial workup. LABORATORY STUDIES: While he was in the hospital, he had laboratory studies, details of which can be found in the laboratory section of his chart. COURSE IN THE HOSPITAL: After admission in the emergency room, he was started on a Cardizem drip and converted to sinus rhythm. After that, he had no further problems and was seen by Cardiology. Enzymes were normal. An echocardiogram was ordered, but the report was not back before discharge. It was felt that he could go home on his usual light activity, diet, medication, and he was told to add 81 mg of aspirin once a day to his regimen. He did qualify for further anticoagulation based on his CHADS-VASC2 score. He will be followed up in the office in several days. FINAL DIAGNOSES: 1. Atrial fibrillation with rapid ventricular response. 2. Obesity. 3. Hypertension. OPERATIONS: None. CONSULTATION: Cardiology. He is improved. ILN / JUSTYNN: [id number] /
[2022-11-05] MEDS ORDERED: ASPIRIN 81 MG PO SCH (09:00)
== END 2022-11-04 17:07 | disposition home or self-care (01) ==
LOC: EC 10:29 → 3SCARD 13:39
PROVIDERS: ADMIT Family Medicine; ATTEND Family Medicine
DX: I48.0 Paroxysmal atrial fibrillation (principal); E66.9 Obesity, unspecified; Z68.43 Body mass index [BMI] 50.0-59.9, adult; I47.1 Supraventricular tachycardia; I10 Essential (primary) hypertension; F17.200 Nicotine dependence, unspecified, uncomplicated; E11.9 Type 2 diabetes mellitus without complications; Z79.899 Other long term (current) drug therapy; Z79.85 Long-term (current) use of injectable non-insulin antidiabetic drugs
CPT/HCPCS: 96375; 96374; 99285; 36415; 93005; 93306; 85379; 84439; 80053; 80048; 84443; 83735; 84484; 85025 ×2; 85610 ×2; 85730 ×2; 71046; G0378 ×2; J1644 ×3